=== PATIENT | female | born 1975 | race Caucasian/White ===

== ENCOUNTER 2017-05-04 20:15 | Emergency (ER) | payer SELFPAY ==
[~2017-05-04] VITALS: Ht 165.1 cm; Wt 69.0 kg
[~2017-05-04 20:15] MED LIST: ASPI81TA3 PO; ATOR40TA68 PO; CLOP75TA28 PO; LOSA25TA2 PO; METO-319 PO; NIT4 SL; TRAM-40 PO
[2017-05-04 20:21] VITALS: Ht 165.1 cm; Wt 69.0 kg
== END 2017-05-05 00:05 | disposition left against medical advice (07) ==
LOC: FTE 20:15
DX: Z53.21 Procedure and treatment not carried out due to patient leaving prior to being seen by health care provider (principal)

== ENCOUNTER 2018-06-24 13:38 | Emergency (ER) | END 2018-06-24 18:26 | disposition home or self-care (01) ==

== ENCOUNTER 2019-02-27 19:07 | Emergency (ER) | payer OTHER ==
[~2019-02-27] VITALS: Ht 162.6 cm; Wt 69.2 kg
[~2019-02-27 19:07] MED LIST changes: +ASPI-903 PO; -ASPI81TA3 PO; +HYDR-4011 PO; +IBUP-1542 PO; -NIT4 SL; +NITR0.4T39 SL; -TRAM-40 PO; +TRAM50TA PO
[2019-02-27 19:09] VITALS: BP 133/74; PULSE 71; RESP 18; Ht 162.6 cm; Wt 69.2 kg
--- NOTE | 2019-02-27 20:24 | ERD ---
ER Documentation Chief Complaint Chief Complaint TINNITUS AND EAR PRESSURE X 2 WEEKS. HPI Patient is a 43-year-old female presents the ER for concerns of left ear ringing and pressure x2 weeks. Patient denies fevers or chills. Patient reports muffled hearing from her left ear. Patient denies any trauma or falls. Patient denies any headache, blurry vision, unilateral weakness, slurred speech. ROS All systems reviewed and are negative except as per history of present illness. Medications Home Meds Active Scripts Hydrocodone/Acetaminophen ([place] 5-325 Tablet) 1 Each Tablet, 1 TAB PO Q6H PRN for PAIN, #10 TAB Prov:ELBERT HOLLINGSWORTH MD 06/24/18 Ibuprofen* (Motrin*) 600 Mg Tab, 600 MG PO Q6H PRN for PAIN AND OR ELEVATED TEMP, #30 TAB Prov:ELBERT HOLLINGSWORTH MD 06/24/18 Tramadol Hcl* (Ultram*) 50 Mg Tablet, 50 MG PO Q6H PRN for PAIN for 10 Days, TAB Prov:MARC KAM MD 07/14/16 Nitroglycerin* (Nitrostat*) 0.4 Mg Tab.subl, 1 TAB SL .Q5M UP TO 3 DOSES PRN for CHEST PAIN for 30 Days, #15 Prov:MARC KAM MD 07/14/16 Losartan Potassium* (Cozaar*) 25 Mg Tablet, 25 MG PO DAILY for 30 Days, #30 TAB Prov:MARC KAM MD 07/14/16 Clopidogrel Bisulfate (Clopidogrel) 75 Mg Tablet, 75 MG PO DAILY for 90 Days, #90 TAB Prov:MARC KAM MD 07/14/16 Atorvastatin* (Atorvastatin*) 40 Mg Tablet, 40 MG PO QHS for 30 Days, #30 TAB Prov:MARC KAM MD 07/14/16 Reported Medications Aspirin* (Aspirin* Chew) 81 Mg Tab.chew, 81 MG PO DAILY, TAB.CHEW 07/13/16 Metoprolol Succinate* (Toprol XL*) 50 Mg Tab.er.24h, 50 MG PO DAILY, #30 TAB 07/13/16 Allergies Allergies: Coded Allergies: No Known Allergy (Unverified , 12/11/12) PMhx/Soc History of Surgery: Yes (cardiac cath with stent 2012-[facility]) Anesthesia Reaction: No Hx Neurological Disorder: No Hx Respiratory Disorders: No Hx Cardiac Disorders: Yes (HTN, s/p cardiac cath with stent 2012) Hx Psychiatric Problems: No Hx Miscellaneous Medical Probl: No Hx Alcohol Use: No Hx Substance Use: No Hx Tobacco Use: No Smoking Status: Never smoker FmHx Family History: No diabetes Physical Exam Vitals Vital Signs Date Temp Pulse Resp B/P (MAP) Pulse Ox O2 O2 Flow FiO2 Time Delivery Rate 02/27/19 97.1 71 18 133/74 100 19:09 (93) Physical Exam GENERAL: Well-developed, well-nourished female. Appears in no acute distress. HEAD: Normocephalic, atraumatic. EYES: Pupils are equally reactive bilaterally. EOMs grossly intact. No conjunctival erythema. ENT: Moist mucous membranes. No uvula deviation. No kissing tonsils. Left-sided cerumen impaction noted. Right TM visualized, nonbulging, nonerythematous. Bilateral mastoid processes are nonerythematous, nonbulging, nontender. NECK: Supple. No meningismus. Normal range of motion of the neck. LUNG: Clear to auscultation bilaterally. No rhonchi, wheezing, rales or coarse breath sounds. HEART: Regular rate and rhythm. No murmurs, rubs or gallops. EXTREMITIES: Equal pulses bilaterally. No peripheral clubbing, cyanosis or edema. No unilateral leg swelling. NEUROLOGIC: Alert and oriented. Moving all four extremities without any difficulty. Normal speech. Steady gait. SKIN: Normal color. Warm and dry. No rashes or lesions. Procedures/MDM MEDICAL DECISION MAKING: This is a 43-year-old female presents ER for concerns of left ear ringing and fullness x2 weeks. Vital signs were reviewed. Patient was afebrile. Patient was not hypoxic. Ear exam revealed left cerumen impaction. Ear lavage was performed using H20/ hydrogen peroxide mix. No trauma or complications were noted. TM was visualized post-irrigation without any erythema or perforation. Patient reported hearing restored. Low suspicion for otitis externa, acute otitis media, tympanic membrane perforation, mastoiditis, otic barotrauma, TMJ dysfunction, meningitis. DISCHARGE: At this time, patient is stable for discharge and outpatient management. I have instructed the patient to follow-up with his/her primary care physician in 1-2 days. I have discussed with the patient the possibility of needing to see a specialist for further workup and diagnostic studies if the pain persists. I have instructed the patient to promptly return to the ER at any time for any new or worsening symptoms including increased pain, fever, swelling, discharge or hearing loss. The patient and/or family expressed understanding of and agreement with this plan. All questions were answered. Home care instructions were provided. Disclaimer: Inadvertent spelling and grammatical errors are likely due to EHR/dictation software use and do not reflect on the overall quality of patient care. Also, please note that the electronic time recorded on this note does not necessarily reflect the actual time of the patient encounter. Departure Diagnosis: Primary Impression: Cerumen impaction Laterality: left Qualified Codes: H61.22 - Impacted cerumen, left ear Additional Impression: Tinnitus of left ear Condition: Fair Patient Instructions: Cerumen Impaction, Home Care Referrals: [facility] YOU HAVE RECEIVED A MEDICAL SCREENING EXAM AND THE RESULTS INDICATE THAT YOU DO NOT HAVE A CONDITION THAT REQUIRES URGENT TREATMENT IN THE EMERGENCY DEPARTMENT. FURTHER EVALUATION AND TREATMENT OF YOUR CONDITION CAN WAIT UNTIL YOU ARE SEEN IN YOUR DOCTORS OFFICE WITHIN THE NEXT 1-2 DAYS. IT IS YOUR RESPONSIBILITY TO MAKE AN APPOINTMENT FOR FOLOW-UP CARE. IF YOU HAVE A PRIMARY DOCTOR --you should call your primary doctor and schedule an appointment IF YOU DO NOT HAVE A PRIMARY DOCTOR YOU CAN CALL OUR PHYSICIAN REFERRAL HOTLINE AT IF YOU CAN NOT AFFORD TO SEE A PHYSICIAN YOU CAN CHOSE FROM THE FOLLOWING [facility] CLINICS [facility] [address] [facility] [address] [facility] [facility] [address] [facility] [address] [facility] [address] [facility] [facility]. [address] [facility]. [facility] YOU HAVE RECEIVED A MEDICAL SCREENING EXAM AND THE RESULTS INDICATE THAT YOU DO NOT HAVE A CONDITION THAT REQUIRES URGENT TREATMENT IN THE EMERGENCY DEPARTMENT. FURTHER EVALUATION AND TREATMENT OF YOUR CONDITION CAN WAIT UNTIL YOU ARE SEEN IN YOUR DOCTORS OFFICE WITHIN THE NEXT 1-2 DAYS. IT IS YOUR RESPONSIBILITY TO MAKE AN APPOINTMENT FOR FOLOW-UP CARE. IF YOU HAVE A PRIMARY DOCTOR --you should call your primary doctor and schedule and appointment IF YOU DO NOT HAVE A PRIMARY DOCTOR YOU CAN CALL OUR PHYSICIAN REFERRAL HOTLINE AT . IF YOU CAN NOT AFFORD TO SEE A PHYSICIAN YOU CAN CHOSE FROM THE FOLLOWING [facility] INSTITUTIONS: [facility] [address] [place] [address] [facility] [address] [place] [address] [facility] + [facility] [address] [place] [address] Additional Instructions: Call your primary care doctor TOMORROW for an appointment during the next 1-2 days.See the doctor sooner or return here if your condition worsens before your appointment time. JAMEE ESCOBAR PA-C Feb 27, 2019 20:24
== END 2019-02-27 20:25 | disposition home or self-care (01) ==
LOC: FTE 19:07
DX: H61.22 Impacted cerumen, left ear (principal); I10 Essential (primary) hypertension; Z79.01 Long term (current) use of anticoagulants; Z79.82 Long term (current) use of aspirin; Z98.61 Coronary angioplasty status
CPT/HCPCS: 69209; Z7502